=== PATIENT | female | born 1965 | race Caucasian/White ===

== ENCOUNTER → 2023-10-20 | Outpatient (CLI) | payer OTHER ==
--- NOTE | 2023-10-24 20:12 | PE ---
EXAMINATION TYPE: PET CT fusion skull to thigh DATE OF EXAM: 10/20/2023 COMPARISON: None Prior PET/CT: None at this location HISTORY: Lung nodules TECHNIQUE: Following the intravenous administration of 9.49 mCi of F-18 FDG, whole body images are p erformed from the skull base to the midthigh. Images are reviewed on the computer in the coronal, ax ial, and sagittal planes. Reconstructed rotating images are created on independent workstation and r eviewed on the computer. A localization and attenuation correction CT is performed in conjunction w ith the PET scan. DLP: 203.03 mGycm SCAN: Initial Blood glucose: 110 mg/dL Average Mediastinum SUV: 2.2 Average Liver SUV: 2.55 FINDINGS: NECK: No abnormal uptake THORAX: No abnormal uptake. In the posterior right midlung density SUV value is 1.63 which is interme diate. None blastic etiologies could be considered. Low-grade neoplasm is not excluded and follow-up is recommended. Example image 117. Posterior right lung Image 85, SUV 2.11 ABDOMEN: No abnormal uptake PELVIS: No abnormal uptake OSSEOUS STRUCTURES: No abnormal uptake LOCALIZATION CT: 0.8 cm nodule posterior right midlung with an adjacent smaller nodule, image 117 COMPARISON: None available this location IMPRESSION: 1. No suspicious uptake to suggest neoplastic process. Intermediate uptake is within the posterior mi d right lung nodule. Follow-up CT chest in 6 months is recommended. A repeat PET/CT can be performed if this is changing.
== END | disposition home or self-care (01) ==
LOC: RADPETMAIN 11:28
PROVIDERS: ATTEND Nurse Practitioner Family
DX: R91.8 Other nonspecific abnormal finding of lung field (principal)
CPT/HCPCS: 78815; A9552

== ENCOUNTER → 2024-05-07 | Outpatient (CLI) | payer BC ==
--- NOTE | 2024-05-11 16:06 | CT ---
EXAMINATION TYPE: CT chest w con CT DLP: 152.0 mGycm, Automated exposure control for dose reduction was used. DATE OF EXAM: 05/07/2024 4:10 PM COMPARISON: PET CT 10/20/2023, CT low-dose lung 09/13/2023 CLINICAL INDICATION:Female, 58 years old with history of R91.1 SOLITARY PULMONARY NODULE; PHH, Solita ry pulmonary nodule. TECHNIQUE: Multiple axial images were obtained through the chest following the administration of 100 cc of Isovue 300. . Coronal and sagittal reformats reviewed. FINDINGS: LUNGS/ PLEURA: No pleural effusion or pneumothorax. Similar reticular opacity within the posterior as pect of the left upper lobe (series 4, image 20). Redemonstration of right lower lobe subpleural part ially solid pulmonary nodule measuring 1.5 cm (series 4, image). The eccentric solid portion measures up to 6 mm in thickness. Previously measure 1.1 cm. Redemonstration irregular opacity with central l ow-attenuation within the posterior aspect of the right upper lobe measuring up to 1.3 cm (series 4, image 21). Previously measured 1.1 cm. Mild centrilobular emphysematous changes. No new pulmonary nod ules or masses. AIRWAY: Patent and unremarkable.. HEART: Size within normal limits. No pericardial effusion. Mild coronary arterial calcifications. MEDIASTINUM: No lymphadenopathy greater than 1 cm in short axis. VASCULATURE: No aortic aneurysm. Mild atherosclerotic calcification of the aorta is branches. MUSCULOSKELETAL: No acute osseous abnormalities SOFT TISSUES/LYMPH NODES: Unremarkable. LOWER NECK: Subcentimeter hypodense nodule within the right thyroid gland. UPPER ABDOMEN: Post cholecystectomy changes. No aggressive osseous lesion. IMPRESSION: Slightly increased size of posterior right upper lobe and posterior right lower lobe nodular opacitie s from prior PET/CT. These may represent infectious/inflammatory nodules and/or scarring with maligna ncy not excluded. Further evaluation with PET/CT is recommended.
== END | disposition home or self-care (01) ==
LOC: RADCTMAIN 15:37
PROVIDERS: ATTEND Internal Medicine Critical Care Medicine
DX: R91.1 Solitary pulmonary nodule (principal)
CPT/HCPCS: 71260; Q9967

== ENCOUNTER → 2024-07-06 | Outpatient (CLI) | payer BC ==
--- NOTE | 2024-07-07 08:12 | CT ---
EXAMINATION TYPE: CT chest w con CT DLP: 132.4 mGycm, Automated exposure control for dose reduction was used. DATE OF EXAM: 07/06/2024 4:46 PM COMPARISON: 05/07/2024 CLINICAL INDICATION: Female, 58 years old with history of J85.2 ABSCESS OF LUNG; PHH, Abnormal chest Xray TECHNIQUE: Multiple axial images were obtained through the chest. Sagittal and coronal reformats were created for review. Contrast used:100 mL of Isovue 300 with IV Contrast (None if empty) Oral contrast used: (None if empty) FINDINGS: LUNGS/ PLEURA: No focal consolidation, pneumothorax or pleural effusion. No organizing fluid collecti on. No enlarging pulmonary nodule. Airspace opacities in the posterior aspect of the upper lungs righ t greater than left, are not significantly changed from 10/20/2023. AIRWAY: Patent and unremarkable. HEART: Size within normal limits. MEDIASTINUM: No gross evidence of adenopathy. VASCULATURE: No aortic aneurysm. MUSCULOSKELETAL: No acute osseous abnormalities SOFT TISSUES/LYMPH NODES: Unremarkable. LOWER NECK: No significant findings. UPPER ABDOMEN: The gallbladder surgically absent. IMPRESSION: 1. Nodular opacities in the posterior upper lungs are not significantly changed. Continued yearly lo w-dose lung cancer screening recommended. 2. No evidence for abscess. 3. Mild emphysema.
== END | disposition home or self-care (01) ==
LOC: RADCTMAIN 15:21
PROVIDERS: ATTEND Internal Medicine Critical Care Medicine
DX: J85.2 Abscess of lung without pneumonia
CPT/HCPCS: 71260